=== PATIENT | male | born 1970 | race Caucasian/White ===

== ENCOUNTER 2018-12-16 22:45 | Emergency (ER) | payer SELFPAY ==
[2018-12-16] MEDS ORDERED: MVI, Adult with Vitamin K 10 ML, Thiamine 100 MG, Folic Acid 1 MG in Sodium Chloride 0.... IV ONE ×4 (23:14)
[2018-12-16] MEDS ORDERED: LORazepam 2 MG/ML SDV IVPUSH ONE (23:25)
[2018-12-16] MEDS ORDERED: Pantoprazole 40 MG Vial IVPUSH ONE (23:25)
[2018-12-16] MEDS ORDERED: Sodium Chloride 0.9% 20 ML ONE (23:34)
[2018-12-16] MEDS ORDERED: Sodium Chloride 0.9% 20 ML SDV FLUSH ONE (23:45)
[2018-12-17 00:03] LABS: BLOOD UREA NITROGEN,BUN 24 mg/dL (7.0-18.0); CARBON DIOXIDE,CO2 23.3 mmol/L (21.0-32.0); CHLORIDE,CL 99 mmol/L (98-107); GLUCOSE RANDOM 109 mg/dL (74-106); POTASSIUM,K 3.3 mmol/L (3.5-5.1); SODIUM,NA 136 mmol/L (136-148)
--- NOTE | 2018-12-17 00:20 | CR ---
INDICATION: Alcohol withdrawal. Hallucinations. TECHNIQUE: Chest 1 view COMPARISON: None FINDINGS: Cardiovascular and mediastinum: Heart size and vasculature are normal in caliber and appearance. Lungs and pleural spaces: Lungs are clear. No sign of infiltrate or mass. No sign of pleural effusion. No pneumothorax. Bones and soft tissues: No significant findings. IMPRESSION: Unremarkable single view chest. Dictated by Torito Jin MD @ Dec 17 2018 12:16AM Signed by Dr. Torito Jin @ Dec 17 2018 12:17AM
[2018-12-17] MEDS ORDERED: Water For Injection, Sterile 20 ML SDV INJECT ONE (00:25)
[2018-12-17] MEDS ORDERED: Ziprasidone Mesylate 20 MG Vial IM ONE (00:25)
[2018-12-17] MEDS ORDERED: Sodium Chloride 0.9% 1,000 ML IV ONE (00:31)
--- NOTE | 2018-12-17 01:08 | EDM.PDOC ---
ED HPI GENERAL MEDICAL PROBLEM - General Chief Complaint: Drug or Alcohol Abuse Stated Complaint: DT Time Seen by Provider: 12/17/18 01:06 Source of Information: Reports: Patient - History of Present Illness INITIAL COMMENTS - FREE TEXT/NARRATIVE: HISTORY AND PHYSICAL: History of present illness: Pt Brief history of previous withdrawal symptoms however not to this degree patient then became quite disorganized in his answers with hallucinations I did provide Ativan and Geodon currently the patient is resting comfortably generally drinks 1 L of vodka daily Review of systems: As per history of present illness and below otherwise all systems reviewed and negative. Past medical history: As per history of present illness and as reviewed below otherwise noncontributory. Surgical history: As per history of present illness and as reviewed below otherwise noncontributory. Social history: No reported history of drug or alcohol abuse. Family history: As per history of present illness and as reviewed below otherwise noncontributory. Physical exam: HEENT: Atraumatic, normocephalic, pupils reactive, negative for conjunctival pallor or scleral icterus, mucous membranes moist, throat clear, neck supple, nontender, trachea midline. Lungs: Clear to auscultation, breath sounds equal bilaterally, chest nontender. Heart: S1S2, regular, negative for clicks, rubs, or JVD. Abdomen: Soft, nondistended, nontender. Negative for masses or hepatosplenomegaly. Negative for costovertebral tenderness. Pelvis: Stable nontender. Genitourinary: Deferred. Rectal: Deferred. Extremities: Atraumatic, negative for cords or calf pain. Neurovascular unremarkable. Neuro: Awake, alert, oriented. Cranial nerves II through XII unremarkable. Cerebellum unremarkable. Motor and sensory unremarkable throughout. Exam nonfocal. Diagnostics: [CBC CMP UA TSH alcohol level urine and drug screen EKG Chest 1 view ] Therapeutics: [Lidia bag Normal saline Geodon 20 mg IM Ativan 2 mg IV ] Impression: [: Withdrawal syndrome Audiovisual hallucinations Six-hour since last alcohol ] Definitive disposition and diagnosis as appropriate pending reevaluation and review of above. - Related Data Allergies Allergy/AdvReac Type Severity Reaction Status Date / Time No Known Allergies Allergy Verified 12/16/18 23:09 Home Meds: Home Meds . [No Known Home Meds] 12/16/18 [History] Past Medical History Cardiovascular History: Reports: Hypertension Social & Family History - Family History Family Medical History: Noncontributory - Tobacco Use Smoking Status *Q: Current Every Day Smoker Years of Tobacco use: 25 Packs/Tins Daily: 1 - Caffeine Use Caffeine Use: Reports: Coffee - Recreational Drug Use Recreational Drug Use: Yes Drug Use in Last 12 Months: Yes Recreational Drug Type: Reports: Methamphetamine Recreational Drug Use Frequency: Weekly ED ROS GENERAL - Review of Systems Review Of Systems: See Below ED EXAM, GENERAL - Physical Exam Exam: See Below Course - Vital Signs Last Recorded V/S: Last Vital Signs Temp 97.3 F 12/16/18 22:57 Pulse 108 H 12/17/18 00:16 Resp 20 12/17/18 00:16 BP 140/95 H 12/17/18 00:16 Pulse Ox 95 12/17/18 00:16 - Orders/Labs/Meds Orders: Active Orders 24 hr Category Date Time Status EKG Documentation Completion [RC] STAT Care 12/16/18 23:14 Active DRUG SCREEN, URINE [URCHEM] Stat Lab 12/16/18 23:14 Ordered UA RFX TINA AND CULT IF INDIC [URIN] Stat Lab 12/16/18 23:14 Ordered Sodium Chloride 0.9% [Normal Saline] 1,000 ml Med 12/17/18 00:31 Active IV STAT Medication Orders Sodium Chloride (Normal Saline) 1,000 mls @ 999 mls/hr IV STAT ONE Stop: 12/17/18 01:31 Last Admin: 12/17/18 00:36 Dose: 999 mls/hr Labs: Laboratory Tests 12/16/18 12/16/18 12/16/18 Range/Units 23:19 23:19 23:19 WBC 7.82 (4.0-11.0) K/uL RBC 4.42 L (4.50-5.90) M/uL Hgb 14.7 (13.0-17.0) g/dL Hct 42.2 (38.0-50.0) % MCV 95.5 (80.0-98.0) fL MCH 33.3 H (27.0-32.0) pg MCHC 34.8 (31.0-37.0) g/dL RDW Std Deviation 47.3 (28.0-62.0) fl RDW Coeff of Rohan 14 (11.0-15.0) % Plt Count 168 (150-400) K/uL MPV 11.10 (7.40-12.00) fL Neut % (Auto) 63.5 (48.0-80.0) % Lymph % (Auto) 24.2 (16.0-40.0) % [place] % (Auto) 11.6 (0.0-15.0) % Eos % (Auto) 0.4 (0.0-7.0) % Baso % (Auto) 0.3 (0.0-1.5) % Neut # (Auto) 5.0 (1.4-5.7) K/uL Lymph # (Auto) 1.9 (0.6-2.4) K/uL [place] # (Auto) 0.9 H (0.0-0.8) K/uL Eos # (Auto) 0.0 (0.0-0.7) K/uL Baso # (Auto) 0.0 (0.0-0.1) K/uL Nucleated RBC % 0.0 /100WBC Nucleated RBCs # 0 K/uL INR 0.99 APTT 23.0 (18.6-31.3) SEC PTT Mix Interpretation Cancelled Sodium 136 (136-148) mmol/L Potassium 3.3 L (3.5-5.1) mmol/L Chloride 99 (98-107) mmol/L Carbon Dioxide 23.3 (21.0-32.0) mmol/L BUN 24 H (7.0-18.0) mg/dL Creatinine 1.8 H (0.8-1.3) mg/dL Est Cr Clr Drug Dosing 51.28 mL/min Estimated GFR (MDRD) 40.8 ml/min Glucose 109 H (74-106) mg/dL Calcium 9.6 (8.5-10.1) mg/dL Total Bilirubin 1.3 H (0.2-1.0) mg/dL AST 240 H (15-37) IU/L ALT 78 H (14-63) IU/L Alkaline Phosphatase 76 (46-116) U/L Troponin I < 0.050 (0.000-0.056) ng/mL Total Protein 7.9 (6.4-8.2) g/dL Albumin 3.7 (3.4-5.0) g/dL Globulin 4.2 H (2.6-4.0) g/dL Albumin/Globulin Ratio 0.9 (0.9-1.6) Lipase 126 (73-393) U/L TSH 3rd Generation 0.35 L (0.36-3.74) uIU/mL Ethyl Alcohol < 3.0 mg/dL Meds: Medications Generic Name Dose Route Start Last Admin Trade Name Freq PRN Reason Stop Dose Admin Sodium Chloride 1,000 mls @ 999 mls/hr 12/17/18 00:31 12/17/18 00:36 Normal Saline IV 12/17/18 01:31 999 mls/hr STAT ONE Administration Discontinued Medications Generic Name Dose Route Start Last Admin Trade Name Freq PRN Reason Stop Dose Admin Multivitamins/Minerals 10 ml/ 1,011.2 mls @ 999 mls/hr 12/16/18 23:14 23:48 Thiamine HCl 100 mg/ Folic IV 12/17/18 00:14 999 mls/hr Acid 1 mg/ Sodium Chloride ONETIME ONE Administration Sodium Chloride Confirm 12/16/18 23:34 12/16/18 23:46 Normal Saline Administered 12/16/18 23:35 Not Given Dose 20 mls @ as directed .ROUTE .STK-MED ONE Lorazepam 2 mg 12/16/18 23:25 12/16/18 23:42 Ativan IVPUSH 12/16/18 23:26 2 mg ONETIME ONE Administration Pantoprazole Sodium 80 mg 12/16/18 23:25 12/16/18 23:36 Protonix Iv IVPUSH 12/16/18 23:26 80 mg .BOLUS ONE Administration Sodium Chloride 20 ml 12/16/18 23:45 12/16/18 23:45 Normal Saline FLUSH 12/16/18 23:46 20 ml ONETIME ONE Administration Sterile Water 1.2 ml 12/17/18 00:25 12/17/18 00:42 Sterile Water For Injection INJECT 12/17/18 00:26 1.2 ml ONETIME ONE Administration Ziprasidone 20 mg 12/17/18 00:25 12/17/18 00:37 Geodon IM 12/17/18 00:26 20 mg ONETIME ONE Administration Departure - Departure Time of Disposition: :08 Disposition: DC/Tfer to Acute Hospital 02 Condition: Poor Clinical Impression: Alcohol withdrawal syndrome - Discharge Information Referrals: PCP,None [Primary Care Provider] - - My Orders Last 24 Hours: My Active Orders 12/16/18 23:14 EKG Documentation Completion [RC] STAT DRUG SCREEN, URINE [URCHEM] Stat UA RFX TINA AND CULT IF INDIC [URIN] Stat 12/17/18 00:31 Sodium Chloride 0.9% [Normal Saline] 1,000 ml IV STAT - Assessment/Plan Last 24 Hours: My Active Orders 12/16/18 23:14 EKG Documentation Completion [RC] STAT DRUG SCREEN, URINE [URCHEM] Stat UA RFX TINA AND CULT IF INDIC [URIN] Stat 12/17/18 00:31 Sodium Chloride 0.9% [Normal Saline] 1,000 ml IV STAT
== END 2018-12-17 06:50 ==
LOC: MW.ED 22:45
DX: F10.239 Alcohol dependence with withdrawal, unspecified (principal); Y90.0 Blood alcohol level of less than 20 mg/100 ml; I10 Essential (primary) hypertension; F17.210 Nicotine dependence, cigarettes, uncomplicated
CPT/HCPCS: 71045; 80053; 83690; 84443; 84484; 85025; 85610; 85730; 93005; 96361; 96365; 96372; 96375; 99285; C9113; G0480; J2060; J3411; J3486; J7040; 99283